=== PATIENT | male | born 1980 | race Caucasian/White ===

== ENCOUNTER 2019-05-13 12:19 | Inpatient (IN) | payer SELFPAY ==
--- OUTSIDE RECORDS SUMMARY | 2019-05-13 12:20 | XMS REPORT | Encounter Summary ---
:1980 Author Reason for Visit new patient Instructions 1. Scleral laceration gentamicin 0.3 % eye drops ophthalmology referral Discussion Note: None recorded.Patient educational handouts: No information available. Plan of Care Patient Instructions Start gentamycin drops and rest as much as possible, consider eye patch. F /U with opthalmology Dr. Avila. Reminders Provider Appointments None recorded. Lab None recorded. Referral Ophthalmology Yung Avila MD Referral 02/20/2019 Procedures None recorded. Surgeries None recorded. Imaging None recorded. Medications Name Start Date gentamicin 0.3 % eye drops INSTILL 1 DROP INTO AFFECTED EYE(S) BY OPHTHALMIC ROUTE EVERY 4 HOURS Medications Administered None recorded. Vitals Height Weight BMI Blood Pressure 68 in 227 lbs 34.5 kg/m2 123/87 mm[Hg] Results Lab Results None recorded. Allergies Code Code System Name Reaction Severity Status Onset NKDA Problems None recorded. Procedures None recorded. Vaccine List None recorded. 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 History of Present Illness Note: Left eye redness, itching and painful, feels better with eye closed started wednesday 4 days ago. Wednesday was around a digging pit with sand blowing in the wind. Review of Systems General Adult ROS Reported By: Patient Constitutional: Constitutional: no fever, no night sweats, no significant weight gain, no significant weight loss, no exercise intolerance Eyes: Eyes: no dry eyes, irritation, vision change ENMT: Ears: no difficulty hearing, no ear pain. Nose: no frequent nosebleeds, no nose/sinus problems. Mouth/Throat: no sore throat, no bleeding gums, no snoring, no dry mouth, no mouth ulcers, no oral abnormalities, no teeth problems, No Post Nasal Dripping, Constantly clearing the throat, hiccups, itching throat, (normal) weak voice: constant Cardiovascular: Cardiovascular: no chest pain, no arm pain on exertion, no shortness of breath when walking, no shortness of breath when lying down, no palpitations, no known heart murmur Respiratory: Respiratory: no cough, no wheezing, no shortness of breath, no coughing up blood Gastrointestinal: Gastrointestinal: no abdominal pain, no vomiting, normal appetite, no diarrhea, not vomiting blood Genitourinary: Genitourinary: no incontinence, no difficulty urinating, no hematuria, no increased frequency Musculoskeletal: Musculoskeletal: no muscle aches, no muscle weakness, no arthralgias/joint pain, no back pain, no swelling in the extremities Integumentary: Skin: no abnormal mole, no jaundice, no rashes Neurologic: Neurologic: no loss of consciousness, no weakness, no numbness, no seizures, no dizziness, no headaches Psychiatric: Psych: no depression, no sleep disturbances, feeling safe in relationship, no alcohol abuse Endocrine: Endocrine: no fatigue Hematologic/Lymphatic: Hematologic/Lymphatic no swollen glands, no bruising Allergic/Immunologic: Allergy/Immunologic: no runny nose, no sinus pressure, no itching, no hives, no frequent sneezing Physical Exam General Adult Exam - Male Reported By: Patient Constitutional: General Appearance: healthy-appearing, well-nourished. Level of Distress: moderate distress. Ambulation: ambulating normally Psychiatric: Insight: good judgement. Mental Status: active and alert, normal mood, normal affect. Orientation: to time, to place, to person. Memory: recent memory normal, remote memory normal Head: Head: normocephalic, atraumatic Eyes: Lids and Conjunctivae: no discharge, no pallor, injected. Pupils: PERRLA. Corneas: grossly intact, fluorescein stain--abnormal. EOM: EOMI. Lens: clear. Sclerae: injected, abrasion; erythematous with edema. Vision: peripheral vision grossly intact, acuity grossly intact Lungs: Respiratory effort: no dyspnea. Percussion: no dullness, flatness, or hyperresonance. Auscultation: breath sounds normal, good air movement, CTA except as noted, no wheezing, no rales/crackles, no rhonchi Cardiovascular: Apical Impulse: not displaced. Heart Auscultation: RRR, normal S1, normal S2, no murmurs, no rubs, no gallops. Neck vessels: no carotid bruits. Pulses including femoral / pedal: normal throughout
[2019-05-13] MEDS ORDERED: DOXYCYCLINE 100 MG CAP PO ONE (13:05)
[2019-05-13] MEDS ORDERED: VANCOMYCIN/NS 1 gm 1 GM/250 ML BAG IVPB ONE ×2 (13:15→14:00)
[2019-05-13 13:40] LABS: Absolute Lymphocytes (CBC) 2.7 K/uL (0.7-4.9); Basophils % 0.2 % (0-1.3); Hematocrit 43.5 % (39.6-49.0); Lymphocytes % 23.9 % (15.3-44.8); MPV 8.4 fL (7.6-11.3); RBC Red Blood Cell Count 4.48 M/uL (4.33-5.43)
[2019-05-13] MEDS ORDERED: MORPHINE 4 MG/ML SYR ONE (13:45)
[2019-05-13] MEDS ORDERED: ONDANSETRON 4 MG/2 ML VIAL ONE (13:46)
[2019-05-13 13:53] LABS: BUN Blood Urea Nitrogen 12 mg/dL (7-18); Bicarbonate 26 mmol/L (21-32); Glucose Level 127 mg/dL (74-106); Sodium Level 140 mmol/L (136-145)
[2019-05-13] MEDS ORDERED: HYDROMORPHONE HCL 1 MG/ML INJ ONE ×2 (15:26→17:45)
--- NOTE | 2019-05-13 15:31 | EDPHYS ---
Physician Documentation [facility] Name: Noe Mejia Age: 39 yrs Sex: Male : 1980 Arrival Date: 05/13/2019 Time: 12:25 Bed 7 Private MD: JILL Physician Vlad Burk HPI: 05/13 13:18 This 39 yrs old Male presents to ER via Ambulatory with complaints of Hand jr8 Swelling. 13:18 The patient or guardian reports decreased range of motion, pain, swelling, tenderness. jr8 The complaints affect the right hand diffusely. Onset: The symptoms/episode began/occurred gradually, 1 week(s) ago. Modifying factors: The symptoms are alleviated by nothing, the symptoms are aggravated by movement. Associated signs and symptoms: The patient has no apparent associated signs or symptoms. Severity of symptoms: At their worst the symptoms were moderate, in the emergency department the symptoms are unchanged. The patient has not experienced similar symptoms in the past. The patient has not recently seen a physician. Patient stated that he was cutting fish last Wednesday and lacerated his hand on top of thumb. Did not seek care at that time. Now has swelling, erythema, discharge to hand with moderate amount of pain . Historical: - Allergies: 12:46 No Known Allergies; ca1 - Home Meds: 12:46 None [Active]; ca1 - PMHx: 12:46 None; ca1 - PSHx: 12:46 None; ca1 - Immunization history:: Adult Immunizations up to date, Last tetanus immunization: unknown, Pneumococcal vaccine is not up to date, Flu vaccine is not up to date. - Social history:: Smoking status: . - Ebola Screening: : Patient denies travel to an Ebola-affected area in the 21 days before illness onset. ROS: 13:18 Eyes: Negative for injury, pain, redness, and discharge, ENT: Negative for injury, jr8 pain, and discharge, Neck: Negative for injury, pain, and swelling, Cardiovascular: Negative for chest pain, palpitations, and edema, Respiratory: Negative for shortness of breath, cough, wheezing, and pleuritic chest pain, Abdomen/GI: Negative for abdominal pain, nausea, vomiting, diarrhea, and constipation, Back: Negative for injury and pain, Skin: Negative for injury, rash, and discoloration, Neuro: Negative for headache, weakness, numbness, tingling, and seizure. 13:18 MS/extremity: Positive for decreased range of motion, erythema, laceration, pain, swelling, tenderness, warmth, of the MCP of right thumb and right hand. Exam: 13:18 Eyes: Pupils equal round and reactive to light, extra-ocular motions intact. Lids and jr8 lashes normal. Conjunctiva and sclera are non-icteric and not injected. Cornea within normal limits. Periorbital areas with no swelling, redness, or edema. ENT: Nares patent. No nasal discharge, no septal abnormalities noted. Tympanic membranes are normal and external auditory canals are clear. Oropharynx with no redness, swelling, or masses, exudates, or evidence of obstruction, uvula midline. Mucous membranes moist. Neck: Trachea midline, no thyromegaly or masses palpated, and no cervical lymphadenopathy. Supple, full range of motion without nuchal rigidity, or vertebral point tenderness. No Meningismus. Cardiovascular: Regular rate and rhythm with a normal S1 and S2. No gallops, murmurs, or rubs. Normal PMI, no JVD. No pulse deficits. Respiratory: Lungs have equal breath sounds bilaterally, clear to auscultation and percussion. No rales, rhonchi or wheezes noted. No increased work of breathing, no retractions or nasal flaring. Abdomen/GI: Soft, non-tender, with normal bowel sounds. No distension or tympany. No guarding or rebound. No evidence of tenderness throughout. Back: No spinal tenderness. No costovertebral tenderness. Full range of motion. Skin: Warm, dry with normal turgor. Normal color with no rashes, no lesions, and no evidence of cellulitis. Neuro: Awake and alert, GCS 15, oriented to person, place, time, and situation. Cranial nerves II-XII grossly intact. Motor strength 5/5 in all extremities. Sensory grossly intact. Cerebellar exam normal. Normal gait. 13:18 Musculoskeletal/extremity: Extremities: grossly normal except: noted in the right hand: Patient has moderate amount of erythema and swelling to right thumb and thenar region of palm extending down to wrist. Approximately 2.5 cm healing laceration noted to MCP region of right hand with purulent discharge seeping from wound. Moderate to severe pain with passive and active ROM to right thumb. Normal sensation. Decreased ROM secondary to swelling and pain. 2+ radial pulses bilaterally present. Rest of extremities unremarkable . Vital Signs: 12:37 BP 116 / 90; Pulse 75; Resp 16; Temp 98.1(O); Pulse Ox 100% ; Pain 10/10; tw2 12:46 Weight 102.06 kg (R); Height 5 ft. 8 in. (172.72 cm) (R); Pain 10/10; ca1 13:43 BP 119 / 99; Pulse 70; Resp 17 S; Pulse Ox 100% on R/A; ca1 14:44 BP 121 / 82; Pulse 70; Resp 17 S; Pulse Ox 100% on R/A; ca1 15:35 BP 101 / 70; Pulse 64; Resp 17; Pulse Ox 96% on R/A; tw2 16:32 BP 110 / 76; Pulse 75; Resp 17 S; Pulse Ox 100% on R/A; Pain 7/10; tw2 17:36 BP 103 / 85; Pulse 65; Resp 17 S; Pulse Ox 100% on R/A; ca1 18:20 Pain 9/10; tw2 12:46 Body Mass Index 34.21 (102.06 kg, 172.72 cm) ca1 MDM: 12:42 Patient medically screened. [facility] 13:26 ED course: Reached out to Dr. Gomes. Left message. Awaiting call back . [facility] 15:18 ED course: Still cannot get a hold of Dr. Gomes. Talked to family and will transfer [facility] patient . 15:27 Physician consultation: Edelmira Kendall MD was called at 15:28, was contacted at [facility] 15:28, regarding admission, to the medical/surgical unit. consult, patient's condition, and will see patient. ED course: Dr. Gomes called back and accepted patient . 15:30 Data reviewed: vital signs, nurses notes, lab test result(s). Data interpreted: Pulse [facility] oximetry: on room air is 100 %. Interpretation: normal. Counseling: I had a detailed discussion with the patient and/or guardian regarding: the historical points, exam findings, and any diagnostic results supporting the discharge/admit diagnosis, lab results, the need for further work-up and treatment in the hospital. 05/13 12:56 Order name: CBC with Diff; Complete Time: 14:23 [facility] 05/13 12:56 Order name: Basic Metabolic Panel; Complete Time: 14:23 jr8 05/13 12:56 Order name: Blood Culture Adult (2) jr8 05/13 16:12 Order name: Basic Metabolic Panel EDMS 05/13 16:12 Order name: Basic Metabolic Panel EDMS 05/13 16:12 Order name: CBC with Automated Diff EDMS 05/13 16:11 Order name: CONS Pharmacy Consult EDMS 05/13 16:12 Order name: CBC with Automated Diff EDMS 05/13 12:56 Order name: IV; Complete Time: 13:55 jr8 05/13 16:11 Order name: CONS Pharmacy Consult EDMS 05/13 16:11 Order name: NPO EDMS 05/13 16:12 Order name: Regular EDMS Administered Medications: 13:40 Drug: Doxycycline 100 mg Route: PO; tw2 15:32 Follow up: Response: No adverse reaction ca1 13:48 Drug: Zofran 4 mg Route: IVP; Site: left hand; tw2 15:00 Follow up: Response: No adverse reaction; Nausea is decreased ca1 13:50 Drug: morphine 4 mg Route: IVP; Site: left hand; tw2 15:00 Follow up: Response: No adverse reaction; Pain is decreased; RASS: Alert and Calm (0) ca1 13:54 Drug: vancoMYCIN 1 grams Route: IVPB; Infused Over: 1.3 hrs; Site: left hand; tw2 15:32 Follow up: Response: No adverse reaction; IV Status: Completed infusion ca1 15:33 Follow up: Response: No adverse reaction; IV Status: Completed infusion tw2 15:25 Drug: Dilaudid 1 mg Route: IVP; Site: left wrist; tw2 15:58 Follow up: Response: No adverse reaction; Pain is decreased; RASS: Alert and Calm (0) ca1 17:43 Drug: Dilaudid 1 mg {Note: RASS - 0.} Route: IVP; Site: left hand; ca1 18:20 Follow up: Pain 9/10 Adult; Response: No adverse reaction; Pain is unchanged, physician tw2 notified; RASS: Alert and Calm (0) Disposition: 05/13/19 15:30 Hospitalization ordered by Edelmira Kendall for Inpatient Admission. Preliminary diagnosis are Cellulitis of right upper limb, Cutaneous abscess of right hand, Synovitis and tenosynovitis. - Bed requested for Telemetry/MedSurg (Inpatient). - Status is Inpatient Admission. tw2 - Condition is Stable. - Problem is new. - Symptoms are unchanged. UTI on Admission? No Addendum: 05/15/2019 09:30 Co-signature as Attending Physician, Vlad Burk MD I agree with the assessment and c hickey plan of care. Signatures: Dispatcher [employer] EDKateryna Call RN RN dw Vlad Burk MD MD cha Roszak, Josh, PA PA jr8 Drea Camargo RN RN tw2 Ale Rubio RN RN ca1 Corrections: (The following items were deleted from the chart) 05/13 12:46 12:41 Immunization history: Adult Immunizations tw2 ca1 16:25 15:30 Hospitalization Ordered by Edelmira Kendall MD for Inpatient Admission. dw Preliminary diagnosis is Cellulitis of right upper limb; Cutaneous abscess of right hand; Synovitis and tenosynovitis. Bed requested for Telemetry/MedSurg (Inpatient). Status is Inpatient Admission. Condition is Stable. Problem is new. Symptoms are unchanged. UTI on Admission? No. jr8 18:23 16:25 05/13/2019 15:30 Hospitalization Ordered by Edelmira Kendall MD for Inpatient tw2 Admission. Preliminary diagnosis is Cellulitis of right upper limb; Cutaneous abscess of right hand; Synovitis and tenosynovitis. Bed requested for Telemetry/MedSurg (Inpatient). Status is Inpatient Admission. Condition is Stable. Problem is new. Symptoms are unchanged. UTI on Admission? No. dw
--- NOTE | 2019-05-13 15:31 | ER ---
Nurse's Notes [facility] Name: Noe Mejia Age: 39 yrs Sex: Male : 1980 Arrival Date: 05/13/2019 Time: 12:25 Bed 7 Private MD: Diagnosis: Cellulitis of right upper limb;Cutaneous abscess of right hand;Synovitis and tenosynovitis Presentation: 05/13 12:30 Presenting complaint: Patient states: R Hand swelling about a week ago. Was cleaning a ca1 fish and cut himself with knife at the R thumb. Very tender to touch, limited ROM on R thumb, purulent discharge noted on Lac. Transition of care: patient was not received from another setting of care. Onset of symptoms was May 13, 2019. 12:30 Method Of Arrival: Ambulatory ca1 12:30 Acuity: MENDEZ 3 ca1 12:42 Risk Assessment: Do you want to hurt yourself or someone else? Patient reports no tw2 desire to harm self or others. Initial Sepsis Screen: Does the patient meet any 2 criteria? No. Patient's initial sepsis screen is negative. Does the patient have a suspected source of infection? No. Patient's initial sepsis screen is negative. Care prior to arrival: None. Historical: - Allergies: 12:46 No Known Allergies; ca1 - Home Meds: 12:46 None [Active]; ca1 - PMHx: 12:46 None; ca1 - PSHx: 12:46 None; ca1 - Immunization history:: Adult Immunizations up to date, Last tetanus immunization: unknown, Pneumococcal vaccine is not up to date, Flu vaccine is not up to date. - Social history:: Smoking status: . - Ebola Screening: : Patient denies travel to an Ebola-affected area in the 21 days before illness onset. Screenin:41 Abuse screen: Denies threats or abuse. Nutritional screening: No deficits noted. tw2 Tuberculosis screening: No symptoms or risk factors identified. Fall Risk None identified. Assessment: 12:47 General: Appears in no apparent distress. comfortable, Behavior is calm, cooperative, ca1 appropriate for age. Pain: Complains of pain in right hand Pain currently is 10 out of 10 on a pain scale. Neuro: Level of Consciousness is awake, alert, obeys commands, Oriented to person, place, time, situation, Appropriate for age. Cardiovascular: Heart tones S1 S2 present Capillary refill < 3 seconds Patient's skin is warm and dry. Respiratory: Airway is patent Respiratory effort is even, unlabored, Respiratory pattern is regular, symmetrical, Breath sounds are clear bilaterally. GI: Abdomen is round non-distended, Bowel sounds present X 4 quads. Abd is soft and non tender X 4 quads. : No deficits noted. No signs and/or symptoms were reported regarding the genitourinary system. EENT: No deficits noted. No signs and/or symptoms were reported regarding the EENT system. Derm: Skin is healthy with good turgor, Skin is pink, warm \T\ dry. Musculoskeletal: Circulation, motion, and sensation intact. Capillary refill < 3 seconds, Range of motion: limited in MCP of right thumb Swelling present in right hand. Injury Description: Laceration sustained to dorsal aspect of proximal phalanx of right thumb is contaminated, 0.5 to 2.5 cm long, not bleeding, purulent discharge was sustained a week no active bleeding noted at this time. 13:45 Reassessment: Patient appears in no apparent distress at this time. Patient and/or ca1 family updated on plan of care and expected duration. Pain level reassessed. Patient is alert, oriented x 3, equal unlabored respirations, skin warm/dry/pink. 14:43 Reassessment: Patient appears in no apparent distress at this time. Patient is alert, ca1 oriented x 3, equal unlabored respirations, skin warm/dry/pink. 15:55 Reassessment: Patient appears in no apparent distress at this time. Patient is alert, ca1 oriented x 3, equal unlabored respirations, skin warm/dry/pink. Pt hospitalized. Pending room assignment. 16:32 Reassessment: Called for report. Nurse will call back. ca1 16:36 Reassessment: Hospitalist at bedside. ca1 16:43 Reassessment: Patient appears in no apparent distress at this time. Patient and/or tw2 family updated on plan of care and expected duration. Pain level reassessed. Patient is alert, oriented x 3, equal unlabored respirations, skin warm/dry/pink. 17:09 Reassessment: Called for report. Will call back. ca1 17:30 Reassessment: Patient appears in no apparent distress at this time. Patient is alert, ca1 oriented x 3, equal unlabored respirations, skin warm/dry/pink. Vital Signs: 12:37 BP 116 / 90; Pulse 75; Resp 16; Temp 98.1(O); Pulse Ox 100% ; Pain 10/10; tw2 12:46 Weight 102.06 kg (R); Height 5 ft. 8 in. (172.72 cm) (R); Pain 10/10; ca1 13:43 BP 119 / 99; Pulse 70; Resp 17 S; Pulse Ox 100% on R/A; ca1 14:44 BP 121 / 82; Pulse 70; Resp 17 S; Pulse Ox 100% on R/A; ca1 15:35 BP 101 / 70; Pulse 64; Resp 17; Pulse Ox 96% on R/A; tw2 16:32 BP 110 / 76; Pulse 75; Resp 17 S; Pulse Ox 100% on R/A; Pain 7/10; tw2 17:36 BP 103 / 85; Pulse 65; Resp 17 S; Pulse Ox 100% on R/A; ca1 18:20 Pain 9/10; tw2 12:46 Body Mass Index 34.21 (102.06 kg, 172.72 cm) ca1 ED Course: 12:25 Patient arrived in ED. rg4 12:30 Ale Rubio, ALVAREZ is Primary Nurse. ca1 12:41 Arm band placed on. tw2 12:41 Bed in low position. Call light in reach. tw2 12:42 Zack Ibarra PA is PHCP. jr8 12:42 Vlad Burk MD is Attending Physician. jr8 12:45 Triage completed. ca1 12:47 Pulse ox on. NIBP on. ca1 13:48 Inserted saline lock: 20 gauge in left hand, using aseptic technique. Blood collected. tw2 15:28 Edelmira Kendall MD is Hospitalizing Provider. jr8 17:05 No provider procedures requiring assistance completed. Patient admitted, IV remains in ca1 place. Administered Medications: 13:40 Drug: Doxycycline 100 mg Route: PO; tw2 15:32 Follow up: Response: No adverse reaction ca1 13:48 Drug: Zofran 4 mg Route: IVP; Site: left hand; tw2 15:00 Follow up: Response: No adverse reaction; Nausea is decreased ca1 13:50 Drug: morphine 4 mg Route: IVP; Site: left hand; tw2 15:00 Follow up: Response: No adverse reaction; Pain is decreased; RASS: Alert and Calm (0) ca1 13:54 Drug: vancoMYCIN 1 grams Route: IVPB; Infused Over: 1.3 hrs; Site: left hand; tw2 15:32 Follow up: Response: No adverse reaction; IV Status: Completed infusion ca1 15:33 Follow up: Response: No adverse reaction; IV Status: Completed infusion tw2 15:25 Drug: Dilaudid 1 mg Route: IVP; Site: left wrist; tw2 15:58 Follow up: Response: No adverse reaction; Pain is decreased; RASS: Alert and Calm (0) ca1 17:43 Drug: Dilaudid 1 mg {Note: RASS - 0.} Route: IVP; Site: left hand; ca1 18:20 Follow up: Pain 9/10 Adult; Response: No adverse reaction; Pain is unchanged, physician tw2 notified; RASS: Alert and Calm (0) Outcome: 15:30 Decision to Hospitalize by Provider. anjel 17:49 Admitted to Med/surg accompanied by tech, via stretcher, room 230, with chart, Report ca1 called to ALVAREZ Aranda 17:49 Condition: stable 17:49 Instructed on the need for admit. 18:23 Patient left the ED. tw2 Signatures: Zack Ibarra PA PA jr8 Drea Camargo RN RN tw2 Marie Curiel 4 Ale Rubio RN RN ca1 Martha Higgins 1 Corrections: (The following items were deleted from the chart) 12:46 12:41 Immunization history: Adult Immunizations tw2 ca1 15:35 12:37 BP 116 / 90; Pulse 75bpm; Resp 16bpm; Pulse Ox 100%; Temp 98.1F Oral; lt1 tw2 16:42 16:32 BP 110 / 76; Pulse 75bpm; Resp 17bpm; Spontaneous; Pulse Ox 100% RA; ca1 tw2
[2019-05-13] MEDS ORDERED: MORPHINE 4 MG/ML SYR IV PRN (15:55)
[2019-05-13] MEDS ORDERED: DOXYCYCLINE 100 MG in NA CHLORIDE 0.9% 100 ML IVPB SCH (17:00)
[2019-05-13] MEDS ORDERED: VANCOMYCIN/NS 1 gm 1 GM/250 ML BAG IVPB SCH (17:00)
[2019-05-13 18:37] VITALS: BMI 33.3
[2019-05-13] MEDS: NA CHLORIDE 0.9% 1,000 ML IV SCH (19:27)
[2019-05-13] MEDS: DOXYCYCLINE 100 MG in NA CHLORIDE 0.9% 100 ML IVPB SCH (19:58)
--- NOTE | 2019-05-13 22:24 | HP ---
Date of Admission: 05/13/2019 Reason For Admission: Hand swelling. History Of Present Illness: This is a 39-year-old gentleman with no past medical history presents to emergency room with progressive right hand diffuse swelling for the last week. Patient reported his tory of wound while he was cleaning a fish last Wednesday. The patient had laceration in his hand on th e top of his thumb. He did not see an MD since, he was not started on antibiotic. Patient denies an y fever, chills, night sweats. He only has swelling, erythema and discharge from his hand with minim al amount of pain. Patient was started on IV antibiotic after blood culture done with vancomycin, do xycycline in the emergency room. Ortho consulted. They will proceed to surgery tomorrow. Patient cole eing admitted in the meantime. Currently, he is lying in bed. He looks comfortable. Have no compla ints. Review of Systems: Otherwise as below. Past Medical History: None. Past Surgical History: Knee surgery. Allergies: NONE. Social History: He lives with a girlfriend. He has 2 kids. 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 He does not smoke or use any drugs. He does drink socially. Family History: Father and mother alive. They are both healthy except father has hypertension. Medication List: At home, none. Review of Systems: Denies any fever, chills, night sweats, dizziness, lightheaded, headache. Actually, he had a headach e at home earlier, but resolved now. There is no cough, shortness of breath. No chest pain, palpita tions, PND, orthopnea, dyspnea on exertion. No lower extremity edema. No nausea, vomiting, abdomina l pain, change in bowel movement, diarrhea, constipation, dysuria, frequency, urgency, hematuria. Th ere is no history of depression, anxiety, seizure, or stroke currently. Physical Examination: Vital signs: Blood pressure is 121/82, respiratory rate 17, pulse 70, saturating 100%, temperature o f 98.1. General: Patient is alert, oriented x3, does not look in any distress. HEENT: Atraumatic, normocephalic. PERRLA. Oral mucosa is moist. Neck: Supple. No JVD. No carotid bruits. Chest: Clear to auscultation. Good air entry. Heart: Regular rate and rhythm S1, S2 normal. No gallop or murmur. Abdomen: Soft, nontender with no guarding. Positive bowel sounds. Extremities: No clubbing, cyanosis, or edema. No calf tenderness. Neurologic: Grossly intact exam. Cranial nerve exam 2 through 12 intact. Normal sensation. Normal reflexes. Normal muscle strength. Right hand exam showed some erythema and swelling of the right t humb extending all the way to the wrist. 2.5 cm healing laceration noted at the MCP region with some purulent discharge, oozing. Patient has tenderness to palpation, but not as much due to the pain me dication. There is a dressing. Pulse palpable well. Laboratory Data: Today, CBC shows normal except white blood cells 11.1. There is no left shift. Ch emistry within normal. Glucose 127. Assessment And Plan: A 39-year-old gentleman with history of right hand injury, presented with exten sive cellulitis. 1.Extensive cellulitis with questionable abscess in the right hand. We will admit patient to floor, placed on IV fluids. Symptomatic treatment for pain with Lortab. Continue IV antibiotic with vanco mycin and doxycycline. Blood culture already done. Tylenol for p.r.n. fever. Patient cleared for s urgery in the morning. VILMA/MK Voice ID: [id number]
[2019-05-13] MEDS: HYDROMORPHONE HCL 2 MG/ML inj IV PRN (23:27)
[2019-05-14] MEDS: VANCOMYCIN/NS 1 gm 1 GM/250 ML BAG IVPB SCH ×2 (00:30→13:00)
[2019-05-14] MEDS: HYDROMORPHONE HCL 2 MG/ML inj IV PRN ×6 (03:46→23:52)
[2019-05-14 06:21] LABS: BUN Blood Urea Nitrogen 9 mg/dL (7-18); Bicarbonate 27 mmol/L (21-32); Glucose Level 106 mg/dL (74-106); Potassium 4.2 mmol/L (3.5-5.1); Sodium Level 140 mmol/L (136-145)
[2019-05-14 06:22] LABS: Absolute Lymphocytes (CBC) 2.5 K/uL (0.7-4.9); Basophils % 0.8 % (0-1.3); Hematocrit 40.8 % (39.6-49.0); Lymphocytes % 27.1 % (15.3-44.8); MPV 8.2 fL (7.6-11.3); RBC Red Blood Cell Count 4.12 M/uL (4.33-5.43)
[2019-05-14] MEDS: NA CHLORIDE 0.9% 1,000 ML IV SCH ×3 (06:31→23:36)
[2019-05-14] MEDS: DOXYCYCLINE 100 MG in NA CHLORIDE 0.9% 100 ML IVPB SCH ×2 (08:04→20:09)
[2019-05-14] MEDS ORDERED: SUCCINYLCHOLINE 20 MG/ML (10 ML) IV ONE (08:32)
[2019-05-14] MEDS ORDERED: FENTANYL CITR 100 MCG/2 ML ONE (08:35)
[2019-05-14] MEDS ORDERED: MIDAZOLAM HCL 2 MG/2 ML INJ ONE (08:35)
[2019-05-14] MEDS ORDERED: propofoL 200 MG/20 ML VIAL IV ONE (08:35)
[2019-05-14] MEDS ORDERED: ONDANSETRON 4 MG/2 ML VIAL ONE (09:58)
[2019-05-14] MEDS ORDERED: MORPHINE 4 MG/ML SYR ONE (09:58)
[2019-05-14] MEDS ORDERED: KETOROLAC 30 MG/ML INJ ONE (09:58)
[2019-05-14] MEDS: HYDROMORPHONE HCL 1 MG/ML INJ ONE ×4 (10:01→10:24)
[2019-05-14] MEDS ORDERED: NA CHLORIDE 0.9% 1,000 ML ONE (10:07)
[2019-05-14] MEDS: VANCOMYCIN 1.75 GM in NA CHLORIDE 0.9% 500 ML IVPB SCH (14:11)
[2019-05-14] MEDS: ACETAMINOPHEN 500 MG TAB PO PRN (15:31)
--- NOTE | 2019-05-14 17:02 | PN ---
Subjective: Currently patient lying in bed. He looks comfortable, but he is tired after surgery. H e has no chest pain. No abdominal pain. No fever, no chills. Review of Systems: Otherwise negative. Objective: Vital Signs: Blood pressure is 107/63, respiratory rate 17, pulse 78, temperature 98.8. General: Patient is alert and oriented x3. Does not look in any distress. HEENT: Atraumatic, normocephalic. PERRLA. Oral mucosa is moist. Neck: Supple. No JVD. No carotid bruits. Chest: Clear to auscultation. Good air entry. Heart: Regular rate and rhythm. S1, S2 normal. No gallop or murmur. Abdomen: Soft, nontender. No masses. No hepatosplenomegaly. Positive bowel sounds. Extremities: No clubbing, no cyanosis or edema. No calf tenderness. Right hand in a white dressing . I did not remove after the debridement. Neurologic: Normal. Laboratory Data: Today, CBC within normal. Chemistry within normal. Assessment And Plan: 1.Extensive cellulitis and abscess of the right hand status post I and D debridement done earlier th is morning in the OR. Patient will go to OR again this Wednesday. His wound is still open. Continu e IV antibiotic with vancomycin and doxycycline. So far, culture is pending, negative. 2.Symptomatic treatment for pain with Dilaudid. 3.Discharge plan will depend on Ortho recommendation and plan of care. VILMA/MK Voice ID: [id number] Report ID: [id number]
--- NOTE | 2019-05-14 19:38 | OP ---
Surgeon: Raheel Gomes MD Preoperative Diagnosis: Open wound of the right thumb. Postoperative Diagnosis: Open wound of the right thumb with laceration of the extensor pollicis long us and open metacarpophalangeal joint. Procedure: Debridement of skin and subcutaneous tissue and joint irrigation. Anesthesia: General. Procedure In Detail: After satisfactory induction of general anesthesia, right hand prepped with Bet adine scrub, Betadine paint, dry sterile drapes applied in usual manner. The arm was elevated. Tour niquet was inflated to 250 mmHg. Hand placed on Rotalok table. A scalpel was used to debride skin e dges and proximal to distal extension was made. Dissection proceeded down. Cloudy fluid was present and Kane the joint. Cultures were taken and then the wound was curetted in the joint as well as so ft tissue swelling and then jet lavage irrigated with 3 L of Betadine solution. Tourniquet was relea sed. Electrocautery was used for hemostasis. Wound packed with 2 inch Kane soaked in Betadine and Kerlix. The patient tolerated the procedure well and returned to Recovery. FRANNY/MK Voice ID: [id number] Report ID: [id number]
[2019-05-15] MEDS: VANCOMYCIN 1.75 GM in NA CHLORIDE 0.9% 500 ML IVPB SCH ×2 (03:14→16:25)
[2019-05-15] MEDS: ACETAMINOPHEN 500 MG TAB PO PRN (04:41)
[2019-05-15] MEDS: HYDROMORPHONE HCL 2 MG/ML inj IV PRN ×5 (04:46→20:56)
[2019-05-15] MEDS ORDERED: IBUPROFEN 400 MG TAB PO PRN (08:54)
[2019-05-15] MEDS ORDERED: ACETAMINOPHEN 500 MG TAB PO PRN (08:54)
[2019-05-15] MEDS: DOXYCYCLINE 100 MG in NA CHLORIDE 0.9% 100 ML IVPB SCH ×2 (09:07→20:57)
--- NOTE | 2019-05-15 11:47 | PN ---
Continue dressing changes q.12. Planned surgery on Wednesday for debridement and closure. FRANNY/MK Voice ID: [id number] Report ID: [id number]
--- NOTE | 2019-05-15 11:56 | P.PN ---
Subjective Date of Service: 05/15/19 Primary Care Provider: PCP Chief Complaint: Cellulitis with abscess right hand Subjective: Improving Patient feeling better today. Has had continued fevers throughout the night. Increased pain medicine last night due to worsening of pain. Patient had surgery yesterday for extensive debridement washout of the wound. Currently able to tolerate fluids and food. This morning is feeling better. Review of Systems General: Fever Eyes: Unremarkable ENT: Unremarkable Respiratory: Unremarkable Cardiovascular: Unremarkable Gastrointestinal: Unremarkable Musculoskeletal: Other (Patient with a right hand cellulitis and cutaneous abscess and synovitis) Integumentary: Unremarkable Neurological: Unremarkable Lymphatics: Unremarkable Physical Examination - Vital Signs Temperature: 99.4 F Blood Pressure: 107/60 Pulse: 88 Respirations: 20 Pulse Ox (%): 97 - Physical Exam General: Alert, In no apparent distress, Oriented x3 HEENT: PERRLA, Mucous membr. moist/pink, EOMI Neck: Supple, 2+ carotid pulse no bruit, JVD not distended, No Thyromegaly Respiratory: Clear to auscultation bilaterally, Normal air movement Cardiovascular: No edema, Normal pulses, Regular rate/rhythm, Normal S1 S2, No gallops, No rubs, No murmurs Capillary refill: <2 Seconds Gastrointestinal: Normal bowel sounds, Soft and benign, Non-distended, No ascites, No tenderness, No masses, No rebound, No guarding Musculoskeletal: Other (Patient with a right open hand wound from surgery. Mild erythema surrounds the region. Packing in place. Patient with decreased range of motion secondary to his splint. But with good sensation and cap refill. Radial pulses 2+.) Integumentary: No rashes, No breakdown, No significant lesion Neurological: Normal gait, Normal speech, Normal strength at 5/5 x4 extr, Normal tone, Sensation intact, Cranial nerves 3-12 intact, Normal reflexes 2+, Normal affect Lymphatics: No axilla or inguinal lymphadenopathy - Studies Medications List Reviewed: Yes Assessment And Plan - Current Problems (Diagnosis) (1) Cellulitis of right hand Current Visit: Yes Status: Acute (2) Cutaneous abscess of right hand Current Visit: Yes Status: Acute (3) Synovitis of hand Current Visit: Yes Status: Acute - Plan Patient overall doing well. Patient will continue to have dressing changes 2 surgical site. Patient had Motrin added for fevers and pain. The patient with mild constipation and stool softener was added daily. Antibiotics and pain medicines will continue. Labs will be assessed daily. Patient to go back to surgery on Wednesday for 2nd debridement and closure. Patient was advised to get up and walk every 1-2 hr. Discharge Plan: Home Plan to discharge in: Greater than 2 days - Code Status/Comfort Care Code Status Assessed: Yes Code Status: Full Code Critical Care: No Time Spent Managing PTS Care (In Minutes): 45
[2019-05-15] MEDS: CODEINE 30MG/APAP 300MG TAB PO PRN (12:13)
[2019-05-15] MEDS: NA CHLORIDE 0.9% 1,000 ML IV SCH ×2 (14:25→21:00)
[2019-05-16] MEDS: HYDROMORPHONE HCL 2 MG/ML inj IV PRN ×6 (00:28→20:17)
[2019-05-16] MEDS: CODEINE 30MG/APAP 300MG TAB PO PRN ×3 (02:20→22:34)
[2019-05-16] MEDS: VANCOMYCIN 1.75 GM in NA CHLORIDE 0.9% 500 ML IVPB SCH ×2 (03:12→16:03)
[2019-05-16] MEDS: NA CHLORIDE 0.9% 1,000 ML IV SCH (03:13)
--- NOTE | 2019-05-16 08:22 | CON ---
History Of Present Illness: This is a 39-year-old male coming in after a knife injury to his right h and while he was cleaning the fish. The patient denies any headache, nausea, vomiting, chest pain, a bdominal pain, constipation, or diarrhea. Does not have any other medical problems and does not take any medications. Does use chewing tobacco. Past Medical History: None. Past Surgical History: Knee surgery. Social History: Nonsmoker. Does use tobacco to chew and positive for alcohol. Family History: Noncontributory. Medications: Doxycycline and vancomycin. See MAR for other medication. Allergies: NO KNOWN DRUG ALLERGIES. Review of Systems: A 10-point review was performed. Physical Examination: Vital Signs: Temperature 99, pulse 88, respirations 16, blood pressure 107/60. HEENT: Unremarkable. Neck: Supple. Lungs: Basal crackles. Heart: S1, S2. Regular. Abdomen: Soft, nontender. Bowel sounds present. Extremities: Right hand wound noted. Good granulation tissue. Laboratory Data: Shows WBC down from 11 to 9.4, hemoglobin 13.8, platelets 282. Sodium 140, potassi um 4.2, chloride 108, bicarb 27, BUN 9, creatinine 0.8. Micro data: Blood cultures no growth for 24 hours. Wound cultures pending. Assessment And Plan: Continue vancomycin and doxycycline for current infection of right hand. These will give the patient broad spectrum coverage and will help improve his cellulitis and wound infecti on. The patient may be a couple of more debridements looking at the wound. We will follow the patie nt as needed. Thank you for consult. LUCIANO/MK Voice ID: [id number] Report ID: [id number]
[2019-05-16] MEDS: DOCUSATE NA 100 MG CAP PO PRN (08:54)
[2019-05-16] MEDS: DOXYCYCLINE 100 MG in NA CHLORIDE 0.9% 100 ML IVPB SCH ×2 (08:55→20:19)
--- NOTE | 2019-05-16 10:31 | PN ---
The dressing was changed and the wounds are getting better. He has bleeding from the wound. Planned surgery tomorrow. He is n.p.o. at midnight. We will debride and close. FRANNY/MK Voice ID: [id number] Report ID: [id number] MTDD
--- NOTE | 2019-05-16 17:01 | PN ---
Subjective: Patient lying in bed. Denies any headache, nausea, vomiting, chest pain, abdominal pain , constipation, or diarrhea. Objective: Vital Signs: Temperature 98, pulse 70, respirations 16, blood pressure 133/80. Lungs: Clear to auscultation. Heart: S1 and S2 are regular. Abdomen: Soft, nontender. Bowel sounds present. Extremities: Right arm wound under surgical dressing. Laboratory Data: Reviewed. Assessment And Plan: Right hand injury with sharp object. Patient is doing better. Continue allie lam wound care and supportive care. We will follow the patient as needed. NF/MODL Voice ID: [id number] Report ID: [id number]
--- NOTE | 2019-05-16 18:02 | PN ---
Date of Progress Note: 05/16/2019 Subjective: Patient is seen and examined, chart reviewed and case discussed with RN and Dr. Darlyn ordoñez. Patient does report some bleeding from the wound. Overnight, had to have dressing changes. Pain is controlled. Medications: List reviewed. Physical Examination: Vital Signs: Temperature 98.6, heart rate 65, blood pressure 105/81, respirations 20, O2 93% on room air. General: Awake, alert, oriented x3. Some mild distress. Obese male. Ill-appearing. CV: S1, S2. Regular rate and rhythm. Peripheral pulses present. Respiratory: Moving air well bilaterally. No wheezing or stridor. No use of accessory muscles. Gastrointestinal: Abdomen is soft, nontender, nondistended. Positive bowel sounds. Extremities: No clubbing, cyanosis. Mild edema of the right upper extremity. Neurologic: Nonfocal. Laboratory Data: No labs for today. Blood cultures, no growth to date. Wound cultures, group A str ep. Assessment: 39-year-old male with: 1.Right hand infection status post debridement, on broad-spectrum IV antibiotics. Cultures are pend ing. Wound culture growing out beta-hemolytic strep and appreciate Dr. Gomes and Dr. Briseno's in put. We will continue to monitor. Continue with IV antibiotics for now. 2.Cellulitis of the right hand. 3.Synovitis of the right hand. 4.Obesity. BMI 33. Plan: Repeat labs in a.m. Likely discharge in the next 24 to 48 hours depending on clinical improve ment. /MODL Voice ID: [id number] Report ID: [id number]
[2019-05-17] MEDS: HYDROMORPHONE HCL 2 MG/ML inj IV PRN ×3 (00:44→09:37)
[2019-05-17] MEDS: CODEINE 30MG/APAP 300MG TAB PO PRN ×2 (02:59→15:36)
[2019-05-17] MEDS: VANCOMYCIN 1.75 GM in NA CHLORIDE 0.9% 500 ML IVPB SCH ×2 (03:00→15:00)
[2019-05-17] MEDS: NA CHLORIDE 0.9% 1,000 ML IV SCH ×3 (05:17→08:49)
[2019-05-17] MEDS: DOXYCYCLINE 100 MG in NA CHLORIDE 0.9% 100 ML IVPB SCH (08:45)
[2019-05-17 09:29] LABS: Absolute Lymphocytes (CBC) 2.6 K/uL (0.7-4.9); Basophils % 1.2 % (0-1.3); Hematocrit 38.7 % (39.6-49.0); Lymphocytes % 37.2 % (15.3-44.8); MPV 7.7 fL (7.6-11.3); RBC Red Blood Cell Count 3.98 M/uL (4.33-5.43)
[2019-05-17 09:43] LABS: ALT/SGPT 58 U/L (12-78); AST/SGOT 27 U/L (15-37); Albumin 2.8 g/dL (3.4-5.0); Alkaline Phosphatase 43 U/L (45-117); BUN Blood Urea Nitrogen 9 mg/dL (7-18); Bicarbonate 31 mmol/L (21-32); Bilirubin Total 0.3 mg/dL (0.2-1.0); Glucose Level 90 mg/dL (74-106); Potassium 3.8 mmol/L (3.5-5.1); Protein, Total 6.1 g/dL (6.4-8.2); Sodium Level 143 mmol/L (136-145)
[2019-05-17] MEDS ORDERED: Ringers Lactate 1,000 ML IV ONE (12:10)
[2019-05-17] MEDS ORDERED: MIDAZOLAM HCL 2 MG/2 ML INJ ONE (12:50)
[2019-05-17] MEDS ORDERED: propofoL 200 MG/20 ML VIAL IV ONE (12:50)
[2019-05-17] MEDS ORDERED: FENTANYL CITR 100 MCG/2 ML ONE (12:50)
[2019-05-17] MEDS ORDERED: LIDOCAINE 2% MPF 5 ML VIAL ONE (12:50)
[2019-05-17] MEDS ORDERED: KETOROLAC 30 MG/ML INJ ONE (12:50)
[2019-05-17] MEDS: HYDROMORPHONE HCL 1 MG/ML INJ ONE ×2 (14:35→14:40)
[2019-05-17] MEDS ORDERED: PROMETHAZINE INJ 25 MG/ML AMP ONE (14:37)
[2019-05-17 14:52] VITALS: BP 113/66; TEMP 97.9; O2SAT 99
[2019-05-17] MEDS: DOCUSATE NA 100 MG CAP PO PRN (15:28)
--- NOTE | 2019-05-18 00:05 | OP ---
Surgeon: Raheel Gomes MD Preoperative Diagnosis: Laceration of the right thumb with laceration of extensor pollicis longus and brevis. Postoperative Diagnosis: Laceration of the right thumb with laceration of extensor pollicis longus and brevis. Procedure Performed: Debridement of skin, subcutaneous tissue, extensor pollicis longus and pollicis brevis repair; simple closure of 10 cm wound; and splint. Anesthesia: General. Procedure In Detail: After satisfactory induction of general anesthesia, the right thumb was prepped with Betadine scrub, Betadine paint, dry sterile drapes applied in the usual manner. Arm was elevated exsanguinated with an Esmarch. Tourniquet was inflated to 250 mmHg. Hand placed on a R[place]ok table. A scalpel , tenotomy scissors, and curette were used to debride the skin and subcutaneous tissue as needed. The patient wound extended into the joint . the pollicus longus was completely lacerated and the pollicis brevis about 50% lacerated. The patient underwent tendon repair with 4-0 Prolene clear of both the brevis and longus. Tourniquet released. Electrocautery used for hemostasis. Flaps were advanced closed with 4-0 Prolene vertical mattress, half buried mattress of simple sutures. Dressed with Xeroform, 2 inch Kane Kerlix, and a thumb spica splint. The patient tolerated the procedure well and returned to recovery. FRANNY/MK Voice ID: [id number] Report ID: [id number] JOE
--- NOTE | 2019-05-18 02:06 | DS ---
Date of Discharge: 05/17/2019 Consultants: Dr. Briseno with Infectious Disease, Dr. Gomes with Plastic Surgery. Procedures: 1.On 05/14/2019, debridement of skin and subcutaneous tissue, and joint irrigation. 2.On 05/17/2019, debridement and closure of thumb of right hand. Admitting Diagnoses: 1.Extensive cellulitis with abscess. 2.Obesity. Discharge Diagnoses: 1.Right hand infection status post debridement. 2.Cellulitis of the right hand. 3.Synovitis of the right hand. 4.Obesity, BMI 33. Hospital Course: Patient is a 39-year-old male with no significant past medical history, comes in wi th wound on his right hand, had an incident cutting fish and had a laceration on his hand on top of t he thumb. Patient came in with cellulitis and synovitis of his hand. Patient was seen by Dr. Hannah anne, Plastic Surgery, was taken for debridement. Patient was started on IV antibiotics. His culture s were negative. Wound cultures from the right hand so far are pending. He was also seen by Infecti ous Disease, Dr. Briseno. The patient did not have any signs of sepsis. His white blood cell count n ormalized. He did not have any further temperature spikes after the initial day. Patient responded well to antibiotics. His pain was well controlled. He was then cleared for discharge. Patient rece ived a script for Keflex and Tylenol No. [address] Gomes, he will also need to finish off course o f doxycycline for a total treatment course of 2 weeks. Followup: Patient to follow up with primary care physician in 2-3 days. Follow up with plastic surg gordon, Dr. Gomes on Wednesday in his office on 05/22/2019. Follow up with ID, Dr. Briseno, in 2 weeks. Return to ER for worsening condition. Diet: Heart healthy. Activity: No driving or operating heavy machinery while on narcotics. Physical Examination: General: Awake, alert, and oriented x3, not in any acute distress, obese male. CVS: S1, S2. Respiratory: Moving air well bilaterally. Abdomen: Abdomen is soft, nontender, nondistended. Positive bowel sounds. Extremities: No clubbing, cyanosis. Right hand edema, bandaged, no drainage. Neurologic: Nonfocal. Total time spent discharging the patient was 35 minutes. SA/MODL Voice ID: [id number] Report ID: [id number]
== END 2019-05-17 16:27 | disposition home or self-care (01) | DRG 580 ==
LOC: ER 12:19 → 2ND 17:56
PROVIDERS: ADMIT Internal Medicine; ATTEND Internal Medicine
PROC: 3E1U38X Irrigation of Joints using Irrigating Substance, Percutaneous Approach, Diagnostic (ICD-10-PCS; 2019-05-14)
PROC: 0JDJ0ZZ Extraction of Right Hand Subcutaneous Tissue and Fascia, Open Approach (ICD-10-PCS; principal; 2019-05-14 08:30)
PROC: 0LQ70ZZ Repair Right Hand Tendon, Open Approach (ICD-10-PCS; 2019-05-17)
PROC: 0JDJ0ZZ Extraction of Right Hand Subcutaneous Tissue and Fascia, Open Approach (ICD-10-PCS; 2019-05-17)
DX: L03.113 Cellulitis of right upper limb (principal); S66.221A Laceration of extensor muscle, fascia and tendon of right thumb at wrist and hand level, initial encounter; B95.4 Other streptococcus as the cause of diseases classified elsewhere; M65.841 Other synovitis and tenosynovitis, right hand; E66.9 Obesity, unspecified; Z68.33 Body mass index [BMI] 33.0-33.9, adult; S61.011A Laceration without foreign body of right thumb without damage to nail, initial encounter; S63.641A Sprain of metacarpophalangeal joint of right thumb, initial encounter; W26.0XXA Contact with knife, initial encounter; Y92.89 Other specified places as the place of occurrence of the external cause
CPT/HCPCS: 36415; 80048; 80053; 80202; 82565; 85025; 87040; 87070; 87075; 87205; 96365; 96375; 99285; J0330; J1170; J2250; J2405; J2550; J2704; J3010; J3370; J7030; J7040; J7120

== ENCOUNTER 2022-01-06 14:16 | Emergency (ER) | payer SELFPAY ==
--- OUTSIDE RECORDS SUMMARY | 2022-01-06 14:18 | XMS REPORT | Continuity of Care Document ---
:1980 Author Organization [facility] t Address [address] [place] [address] Care Team Providers Name Role Phone Fco_Nelda Attending Clinician Unavailable Fco_Nelda Admitting Clinician Unavailable Payers Payer Name Policy Type Policy Number Effective Date Expiration Date S ource Problems This patient has no known problems. Allergies, Adverse Reactions, Alerts This patient has no known allergies or adverse reactions. Social History Smoking Status Start Date Stop Date Source Former Smoker [facility] Medications Ordered Filled Start Stop Current Ordering Indication Dosage Frequency Signature Comments Components Source Medication Medication Date Date Medication? Clinician (SIG) Name Name gentamicin gentamicin No gentamicin [facility] 0.3 % eye 0.3 % eye 0.3 % eye da drops drops drops Medical INSTILL 1 INSTILL 1 INSTILL 1 Group DROP INTO DROP INTO DROP INTO AFFECTED AFFECTED AFFECTED EYE(S) BY EYE(S) BY EYE(S) BY OPHTHALMIC OPHTHALMIC OPHTHALMIC ROUTE EVERY ROUTE EVERY ROUTE 4 HOURS 4 HOURS EVERY 4 HOURS Vital Signs Vital Name Observation Time Observation Value Comments Source BP Diastolic 2019-02-20 00:00:00 87 mm[Hg] [facility] Height 2019-02-20 00:00:00 68 [in_i] [facility] BMI (Body Mass 2019-02-20 00:00:00 34.5 kg/m2 [facility] BP Systolic 2019-02-20 00:00:00 123 mm[Hg] [facility] Body Weight 2019-02-20 00:00:00 3632 [oz_av] [facility] Procedures This patient has no known procedures. Plan of Care Planned Activity Planned Date Details Comments Source Instructions [facility] Encounters Start End Encounter Admission Attending Care Care Encounter Source Date/Time Date/Time Type Type Clinicians Facility Department ID 2020-03-27 2020-03-27 [id number] 02:34:00 02:34:00 [id number] 2019-02-20 2019-02-20 Alex[facility] [place] - [id number] [facility] 00:00:00 00:00:00 [facility]: [address], [place] [address] , Ph. Results This patient has no known results.
[2022-01-06 15:14] LABS: Absolute Lymphocytes (CBC) 3.1 K/uL (0.7-4.9); Hematocrit 44.6 % (39.6-49.0); MCV 90.7 fL (80-100); MPV 7.1 fL (7.6-11.3); RBC Red Blood Cell Count 4.92 M/uL (4.33-5.43)
[2022-01-06 15:30] LABS: Albumin 3.5 g/dL (3.4-5.0); Bilirubin Total 0.2 mg/dL (0.2-1.0); C-Reactive Protein 15.1 mg/L (<3.00); Potassium 4.3 mmol/L (3.5-5.1); Protein, Total 7.4 g/dL (6.4-8.2); Uric Acid 6.7 mg/dL (3.5-7.2)
--- NOTE | 2022-01-06 15:32 | RAD REPORT ---
EXAM DESCRIPTION: RAD - Foot Left 3 View - 01/06/2022 3:03 pm CLINICAL HISTORY: SWELLING COMPARISON: <Comparisons> FINDINGS/IMPRESSION: No acute fracture. No malalignment. No significant focal degenerative changes.
--- NOTE | 2022-01-06 15:37 | RAD REPORT ---
EXAM DESCRIPTION: RAD - Ankle Left 3 View - 01/06/2022 3:03 pm CLINICAL HISTORY: pain, swelling COMPARISON: Foot Left 3 View dated 01/06/2022 FINDINGS/IMPRESSION: No acute fracture. No malalignment. No significant focal degenerative changes. Osteochondroma at the distal tibial diaphysis.
--- NOTE | 2022-01-06 15:38 | RAD REPORT ---
EXAM DESCRIPTION: US - Extremity Venous Uni Ltd - 01/06/2022 3:34 pm CLINICAL HISTORY: Pain COMPARISON: None. TECHNIQUE: Real-time sonographic evaluation of the left lower extremity deep venous system was perfo rmed. FINDINGS: Normal compressibility, flow augmentation, phasic flow and spontaneous flow is identified in the left lower extremity deep venous system. No intraluminal filling defects seen. IMPRESSION: No DVT in the left lower extremity.
[2022-01-06] MEDS ORDERED: KETOROLAC 30 MG/ML INJ ONE (16:31)
--- NOTE | 2022-01-06 17:24 | EDPHYS ---
Physician Documentation [facility] Name: Noe Mejia Age: 41 yrs Sex: Male : 1980 Arrival Date: 01/06/2022 Time: 14:18 Bed 11 Private MD: ED Physician Adryan Rain HPI: 01/06 14:41 This 41 yrs old Male presents to ER via Ambulatory with complaints of Ankle Injury. m 14:41 The patient presents with pain, that is chronic. Onset: The symptoms/episode jmm began/occurred acutely, 2 month(s) ago. This is a 41-year-old male with no chronic medical conditions presents emerged part with complaints of left ankle pain which initially developed after rolling his ankle. Patient was evaluated at [facility] with negative x-rays and prescribed pain medications and antibiotics. Patient states he is had chronic inflammation in the ankle and the foot since. Patient has not followed up with Ortho or podiatry. Patient denies fever or chills.. Historical: - Allergies: 14:27 No Known Allergies; tw2 - Home Meds: 14:27 None [Active]; tw2 - PMHx: 14:27 None; tw2 - PSHx: 14:27 RIGHT thumb sx; tw2 - Immunization history:: Adult Immunizations. - Social history:: Smoking status: . ROS: 14:41 Constitutional: Negative for fever, chills, and weight loss, Cardiovascular: Negative jmm for chest pain, palpitations, and edema, Respiratory: Negative for shortness of breath, cough, wheezing, and pleuritic chest pain. 14:41 MS/extremity: Positive for injury or acute deformity, erythema, pain, swelling. 14:41 All other systems are negative. Exam: 14:41 Constitutional: This is a well developed, well nourished patient who is awake, alert, jmm and in no acute distress. Head/Face: atraumatic. Eyes: EOMI, no conjunctival erythema appreciated ENT: Moist Mucus Membranes Neck: Trachea midline, Supple Chest/axilla: Normal chest wall appearance and motion. Cardiovascular: Regular rate and rhythm. No edema appreciated Respiratory: Normal respirations, no respiratory distress appreciated Abdomen/GI: Non distended Back: Normal ROM 14:41 Musculoskeletal/extremity: Edema noted to the right ankle and right foot, full dorsalis pedis pulse, compartments are soft, neurovascular intact. 14:41 Skin: Mild diffuse erythema noted to the left foot and ankle. 14:41 Neuro: Orientation: is normal, Mentation: is normal, Memory: is normal. 14:41 Psych: Behavior/mood is pleasant, cooperative. Vital Signs: 14:25 BP 117 / 83; Pulse 75; Resp 17; Temp 97.8(TE); Pulse Ox 100% on R/A; Pain 9/10; tw2 14:25 work day. after i pack it on ice tw2 MDM: 14:41 Patient medically screened. [facility] 17:21 Data reviewed: vital signs, nurses notes. Counseling: I had a detailed discussion with [facility] the patient and/or guardian regarding: the historical points, exam findings, and any diagnostic results supporting the discharge/admit diagnosis, lab results, radiology results, the need for outpatient follow up, to return to the emergency department if symptoms worsen or persist or if there are any questions or concerns that arise at home. 01/06 14:41 Order name: CBC with Diff; Complete Time: 15:35 [facility] 01/06 14:41 Order name: CMP; Complete Time: 15:35 [facility] 01/06 14:41 Order name: ESR; Complete Time: 15:35 [facility] 01/06 14:41 Order name: Lactate; Complete Time: 15:36 [facility] 01/06 14:41 Order name: CRP; Complete Time: 15:35 [facility] 01/06 14:42 Order name: Uric Acid; Complete Time: 15:35 [facility] 01/06 14:41 Order name: Saline Lock; Complete Time: 15:08 [facility] 01/06 14:42 Order name: Ankle Left 3 View XRAY; Complete Time: 15:38 [facility] 01/06 14:42 Order name: Foot Left 3 View XRAY; Complete Time: 15:35 [facility] 01/06 14:46 Order name: US Extremity Venous Unilateral Ltd; Complete Time: 15:39 [facility] Administered Medications: 16:27 Drug: Ketorolac 30 mg Route: IVP; Site: right antecubital; iw 17:00 Follow up: Response: No adverse reaction iw Disposition: 18:59 Co-signature as Attending Physician, Adryan Rain DO I agree with the assessment and ms3 plan of care. Disposition Summary: 01/06/22 17:22 Discharge Ordered Location: Home [facility] Condition: Stable jm Diagnosis - Other sprain of left foot [facility] Followup: [facility] - With: Ganesh Ford DPM - When: Tomorrow - Reason: Recheck today's complaints, Continuance of care, Re-evaluation by your physician Discharge Instructions: - Foot Sprain [facility] - Discharge Summary Sheet tw2 Forms: - Medication Reconciliation Form [facility] - Thank You Letter [facility] - Antibiotic Education [facility] - Work release form tw2 - Prescription Opioid Use [facility] Prescriptions: - Diclofenac Sodium 75 mg Oral Tablet Sustained Release - take 1 tablet by ORAL route 2 times per day; 30 tablet; Refills: 0, Product [facility] Selection Permitted Signatures: Dispatcher [employer] EDMichael Way PA PA jmm Millie Rogers, RN RN iw Drea Camargo RN RN tw2 Adryan Rain DO DO ms3 Corrections: (The following items were deleted from the chart) 16:52 16:36 Crutches ordered. [facility] rylie
--- NOTE | 2022-01-06 17:24 | ER ---
Nurse's Notes [facility] Name: Noe Mejia Age: 41 yrs Sex: Male : 1980 Arrival Date: 01/06/2022 Time: 14:18 Bed 11 Private MD: Diagnosis: Other sprain of left foot Presentation: 01/06 14:25 Chief complaint: Patient states: my LEFT ankle. i rolled it and it popped 2 months ago. tw2 i went to [place] and they told me it was sprained. they gave me abx and tylenol 3. still no better. still swollen. pain continues to move all the way up the legs. if i step wrong it just germaine my knee. it is swollen and red. it never has gotten any better. Coronavirus screen: At this time, the client does not indicate any symptoms associated with coronavirus-19. Ebola Screen: Patient denies travel to an Ebola-affected area in the 21 days before illness onset. Initial Sepsis Screen: Does the patient meet any 2 criteria? No. Patient's initial sepsis screen is negative. Does the patient have a suspected source of infection? No. Patient's initial sepsis screen is negative. Risk Assessment: Do you want to hurt yourself or someone else? Patient reports no desire to harm self or others. Onset of symptoms was January 06, 2022. 14:25 Method Of Arrival: Ambulatory tw2 14:25 Acuity: MENDEZ 3 tw2 Triage Assessment: 14:27 General: Appears in no apparent distress. Behavior is calm, cooperative, appropriate tw2 for age. Pain: Complains of pain in LEFT ankle. Musculoskeletal: Range of motion: intact in all extremities, Reports swelling in LEFT ankle. Historical: - Allergies: 14:27 No Known Allergies; tw2 - Home Meds: 14:27 None [Active]; tw2 - PMHx: 14:27 None; tw2 - PSHx: 14:27 RIGHT thumb sx; tw2 - Immunization history:: Adult Immunizations. - Social history:: Smoking status: . Screenin:36 Abuse screen: Denies threats or abuse. Nutritional screening: No deficits noted. tw2 Tuberculosis screening: No symptoms or risk factors identified. Fall Risk None identified. Assessment: 17:00 General: Appears in no apparent distress. Behavior is calm, cooperative. Neuro: Level iw of Consciousness is awake, alert, obeys commands, Oriented to person, place, time, situation. Respiratory: Respiratory effort is even, unlabored. Derm: Skin is intact, is healthy with good turgor. Musculoskeletal: Range of motion: limited in left ankle Swelling present in anterior aspect of left ankle and dorsum of left foot. Vital Signs: 14:25 BP 117 / 83; Pulse 75; Resp 17; Temp 97.8(TE); Pulse Ox 100% on R/A; Pain 9/10; tw2 14:25 work day. after i pack it on ice tw2 ED Course: 14:18 Patient arrived in ED. mr 14:21 Michael Haider PA is PHCP. jmm 14:21 Adryan Rain DO is Attending Physician. jmm 14:26 Triage completed. tw2 14:28 Arm band placed on. tw2 14:28 Bed in low position. Call light in reach. Adult w/ patient. tw2 14:41 Millie Rogers, RN is Primary Nurse. iw 15:05 Ankle Left 3 View XRAY In Process Unspecified. EDMS 15:05 Foot Left 3 View XRAY In Process Unspecified. EDMS 15:08 Inserted saline lock: 20 gauge in right antecubital area, using aseptic technique. kc6 Blood collected. 15:08 CRP Sent. kc6 15:08 ESR Sent. kc6 15:08 Lactate Sent. kc6 15:08 CMP Sent. kc6 15:08 CBC with Diff Sent. kc6 15:09 Uric Acid Sent. kc6 15:35 US Extremity Venous Unilateral Ltd In Process Unspecified. EDMS 17:22 Ganesh Ford DPM is Referral Physician. [facility] 17:31 No provider procedures requiring assistance completed. IV discontinued, intact, iw bleeding controlled, No redness/swelling at site. Pressure dressing applied. Administered Medications: 16:27 Drug: Ketorolac 30 mg Route: IVP; Site: right antecubital; iw 17:00 Follow up: Response: No adverse reaction iw Medication: 14:37 VIS not applicable for this client. tw2 Outcome: 17:22 Discharge ordered by . jmm 17:31 Discharged to home ambulatory. iw 17:31 Condition: good 17:32 Patient left the ED. iw 19:48 Discharge instructions given to patient, Instructed on discharge instructions, follow iw up and referral plans. Demonstrated understanding of instructions, follow-up care, medications, Prescriptions given X 1. Signatures: Dispatcher [employer] Michael Farley PA PA jmm MaravillaSophia hickman mr RogersMillie, RN RN iw Drea Camargo RN RN tw2 Sun Lozano kc6 Corrections: (The following items were deleted from the chart) 14 14:25 Chief complaint: Patient states: my LEFT ankle. i rolled it and it popped 2 tw2 months ago. i went to [place] and they told me it was sprained. they gave me abx and tylenol 3. still no better. still swollen. pain continues to move all the way up the legs. if i step wrong it just germaine my knee tw2 14:32 14:25 Acuity: MENDEZ 4 tw2 tw2
[2022-01-06 18:58] VITALS: BP 117/83; TEMP 97.8; O2SAT 100
== END 2022-01-06 17:32 | disposition home or self-care (01) ==
LOC: ER 14:16
DX: S93.692A Other sprain of left foot, initial encounter (principal)
CPT/HCPCS: 36415; 80053; 83605; 84550; 85025; 85652; 86140; 93971